=== PATIENT | female | born 1965 | race Caucasian/White ===

== ENCOUNTER 2016-08-13 08:49 | Outpatient (CLI) | payer OTHER | END 2016-08-13 23:59 | disposition home or self-care (01) | LOC: D.MAMMO 08:49 | DX: Z12.31 Encounter for screening mammogram for malignant neoplasm of breast (principal) ==

== ENCOUNTER 2017-03-06 09:52 | Emergency (ER) | payer MEDICAID | END 2017-03-06 11:03 | disposition home or self-care (01) | LOC: D.ER 09:52 | DX: I10 Essential (primary) hypertension (principal); G43.909 Migraine, unspecified, not intractable, without status migrainosus; F17.200 Nicotine dependence, unspecified, uncomplicated ==

== ENCOUNTER 2017-12-10 05:05 | Day surgery (SDC) | payer MEDICAID ==
[2017-12-09 14:27] LABS: HEMATOCRIT 43.7 % (36.0-48.0); HEMOGLOBIN 14.7 g/dL (12-16); MCH 30.3 pg (26.0-34.0); MCHC 33.6 g/dL (31.0-37.0); MCV 90.1 fL (80.0-100.0); MEAN PLATELET VOLUME 10.8 fL (7.4-10.4); RBC 4.85 10x6/uL (4.00-5.40)
[2017-12-09 14:35] LABS: CALC OSMOLALITY 276 mosm/kg (275-300); CARBON DIOXIDE 30.3 mmol/L (21.0-32.0); CHLORIDE - SERUM 103 mmol/L (98-107); CREATININE - SERUM 0.7 mg/dL (0.6-1.3); GLUCOSE 91 mg/dL (74-106); POTASSIUM - SERUM 3.8 mmol/L (3.5-5.1); SODIUM 140 mmol/L (136-145); UREA NITROGEN 7 mg/dL (7-18); eGFR NON AFRICAN AMERICAN > 90 mL/min (90-120)
[~2017-12-10] VITALS: Ht 157.5 cm; Wt 127.0 kg
--- NOTE | ~2017-12-10 | OP ---
PATIENT NAME: HELLEN ADEN MEDICAL RECORD: [id number] :69 LOCATION:D.OPS ADMISSION DATE: SURGEON: LIV LUDWIG DPM DATE OF OPERATION: 12/10/2017 PREOPERATIVE DIAGNOSES: 1. Retrocalcaneal spur, right foot. 2. Achilles tendon disruption, right foot. POSTOPERATIVE DIAGNOSES: 1. Retrocalcaneal spur, right foot. 2. Achilles tendon disruption, right foot. PROCEDURES: 1. Gastroc recession, right leg. 2. Right calcaneal spur removal. 3. Right Achilles tendon repair. ANESTHESIA: Preoperative popliteal block per the anesthesia department as well as intraoperative general anesthesia. HEMOSTASIS: Right thigh tourniquet at 350 mmHg. PREOPERATIVE DETAILS: The patient was taken to the OR and following induction of general anesthesia, the patient was placed on the operating table in a prone position. The right extremity was then prepped and draped in usual aseptic technique, followed by exsanguination and inflation of tourniquet. PROCEDURE #1: Gastroc recession, right leg: A 15-blade was used to create a 4-5 cm linear incision over the posterior aspect of the right gastroc aponeurosis. The incision was deepened down through subcutaneous tissue bluntly being sure to avoid all vital structures. Dissection was carried to the peritenon, which a linear incision was made longitudinally in the peritenon. At this time, it was freed from the aponeurosis with the foot held in dorsiflexion. A cut was made through the aponeurosis in a V fashion from medial to lateral allowing adequate dorsiflexion of the ankle joint. The wound was flushed and the skin was closed with skin chacorta. PROCEDURE #2: Retrocalcaneal spur removal, right foot: A 15 blade was used to create a 4-5 cm linear incision over the posterior aspect of the right Achilles tendon at its insertion. The incision was deepened down through subcutaneous tissue being sure to avoid all vital structures. Dissection was carried down to the posterior aspect of the calcaneus. The soft tissue was freed from the posterior aspect of the calcaneus as well as incision was made in the peritenon freeing it from the Achilles tendon. At this time, there was noted to be significant enlargement of the posterior calcaneus as well as intratendinous calcifications. A 15-blade was used to dissect the Achilles tendon off the insertion of the calcaneus. The Achilles tendon was then reflected exposing the posterior aspect of the calcaneus. There was noted to be significant spurring. A sagittal saw was used to resect the spurring leaving a good smooth surface. A 15-blade was used to then dissect the retrocalcaneal spurring and the intratendinous calcifications from the Achilles tendon itself. PROCEDURE #3: Repair of the Achilles tendon, right foot: Utilizing suture bridge technique with 4 anchors, the Achilles tendon was repaired back to the OPERATIVE REPORT [id number] HELLEN ADEN TOMA calcaneus in a very rigid fashion. Following the repair, there was noted to be excellent repair along the dorsiflexion of the ankle joint. The wound was flushed. The peritenon was then repaired with 2-0 Vicryl, the subcutaneous tissue with 4-0 Rapide, and skin was closed with 4-0 Rapide in a subcuticular technique followed by Dermabond. Adaptic, 4 x 4, and Conform were used to dress the wound, followed by application of a modified Segura compression dressing. Tourniquet was deflated. POSTOPERATIVE DETAILS: The patient tolerated the procedure well and left the OR with vital signs stable and vascular status at preop levels. The patient was transferred to recovery per anesthesia in stable condition. TRANSINT:[id number] Voice Confirmation ID: [id number] DOCUMENT ID: [id number] LIV LUDWIG DPM at 0922 CC: [id number] DICTATION DATE: 12/10/17819 ELECTRICAL CAD TECHNICIAN: 12/10/17 0836 [facility] [address] [place] [address]
[~2017-12-10 05:05] MED LIST: ATIVAN1 MG PO; BUTALB-APAP-CA1 EACH; CELEXA20 MG PO; K-TAB10 MEQ PO; PAZEO2.5 ML EACH EYE; PRINZIDE 20/12.1 TA1 PO; VENTOLIN HFA18 GM INH
[2017-12-10 06:08] VITALS: BP 112/75; Ht 157.5 cm; Wt 127.0 kg
== END 2017-12-10 10:10 | disposition home or self-care (01) ==
LOC: D.OPS 05:05 → D.PAN 07:00 → D.OPS 10:10
PROVIDERS: Anesthesiology
DX: M77.31 Calcaneal spur, right foot (principal); S86.011A Strain of right Achilles tendon, initial encounter; X58.XXXA Exposure to other specified factors, initial encounter; Z01.812 Encounter for preprocedural laboratory examination

== ENCOUNTER → 2018-09-11 10:14 | Outpatient (CLI) | payer MEDICAID ==
[2017-12-10 06:08] VITALS: BMI 51.3
== END | disposition home or self-care (01) ==
LOC: D.MRI 10:14
PROVIDERS: ATTEND Clinical Nurse Specialist Family Health
DX: M25.561 Pain in right knee (principal)

== ENCOUNTER 2018-10-12 11:05 | Day surgery (SDC) | payer MEDICAID ==
[~2018-10-12] VITALS: Ht 157.5 cm; Wt 122.7 kg
[2018-10-12 11:26] LABS: HEMATOCRIT 43.9 % (36.0-48.0); HEMOGLOBIN 15.1 g/dL (12-16); MCH 30.1 pg (26.0-34.0); MCHC 34.4 g/dL (31.0-37.0); MCV 87.5 fL (80.0-100.0); MEAN PLATELET VOLUME 10.2 fL (7.4-10.4); RBC 5.02 10x6/uL (4.00-5.40); RDW 14.1 % (11.5-14.5); WBC 6.3 10x3/uL (4.8-10.8)
[2018-10-12 11:46] LABS: CALC OSMOLALITY 273 mosm/kg (275-300); CALCIUM 8.7 mg/dL (8.5-10.1); CARBON DIOXIDE 27.8 mmol/L (21.0-32.0); CHLORIDE - SERUM 103 mmol/L (98-107); CREATININE - SERUM 0.8 mg/dL (0.6-1.3); POTASSIUM - SERUM 3.9 mmol/L (3.5-5.1); SODIUM 137 mmol/L (136-145); UREA NITROGEN 8 mg/dL (7-18); eGFR NON AFRICAN AMERICAN 80 mL/min (90-120)
[2018-10-12 11:47] LABS: GLUCOSE 141 mg/dL (74-106)
[2018-10-12 12:11] VITALS: BP 105/69; Ht 157.5 cm; Wt 122.7 kg
--- NOTE | 2018-10-12 15:25 | NUR ---
1443 IV DC'D. CATHETER INTACT. NO BLEEDING AT SITE. BANDAID APPLIED.
--- NOTE | 2018-10-14 17:26 | OP ---
PATIENT NAME: HELLEN ADEN MEDICAL RECORD: [id number] :69 [facility] DATE: SURGEON: PAUL RASMUSSEN DO DATE OF OPERATION: 10/12/2018 PROCEDURE: Colonoscopy with polypectomy and biopsy. INDICATIONS FOR PROCEDURE: Diarrhea. SCOPE: Olympus video pediatric colonoscope. MEDICATIONS: Propofol 450 mg IV per anesthesia. WITHDRAWAL TIME: 17 minutes. ESTIMATED BLOOD LOSS: Minimal. COMPLICATIONS: None. FINDINGS AND DESCRIPTION OF PROCEDURE: Informed consent was given. The patient was made comfortable with the above medication. After reaching an adequate level of sedation by slow IV push, the patient was placed on her left side. A digital rectal examination was performed and it was normal. The endoscope was then advanced under direct visualization through the rectum to the terminal ileum and cecum. The endoscope was slowly withdrawn and mucosa was carefully examined. The prep quality was fair. The terminal ileum appeared normal. In the ascending colon, there were two separate polyps, which were benign-appearing and sessile. They ranged in size from 3 to 5 mm in diameter. They were removed using a hot snare in one piece and completely retrieved. In the transverse colon, there were two separate polyps, which were benign-appearing and sessile. They ranged in size from 2 to 4 mm in diameter. They were removed using hot forceps. In the descending colon, there was a single polyp, which was benign appearing and sessile. It measured approximately 4 mm in diameter. It was removed using a hot forceps in one piece and completely retrieved. In the sigmoid colon, there were 3 separate polyps, which were benign-appearing and sessile. They ranged in size from 3 to 6 mm in diameter. They were all removed using hot snare in one piece and completely retrieved. There was evidence of mild diverticulosis involving the sigmoid colon. Retroflexion was performed in the rectum with a normal-appearing rectal wall. The endoscope was withdrawn from the patient. The patient tolerated the procedure well and there were no complications. IMPRESSION: 1. Eight polyps as described above, removed using a combination of a hot snare and hot forceps. 2. Mild diverticulosis of the sigmoid colon. PLAN AND RECOMMENDATIONS: 1. Discharge home when recovery parameters are met. 2. Follow up biopsy specimen results. 3. High fiber diet. 4. Continue current medications. 5. Recommend continuing or restarting Viberzi for what appears to be irritable bowel syndrome that is diarrhea predominant. 6. We will provide a prescription for dicyclomine 20 mg 3 times daily as needed OPERATIVE REPORT [id number] HELLEN ADEN for loose stools or abdominal pain and cramping. 7. Follow up in GI clinic in 3-4 weeks. 8. Recall colonoscopy in 2 to 3 years based on number and types of polyps removed on today's examination. TRANSINT:[id number] Voice Confirmation ID: [id number] DOCUMENT ID: [id number] PAUL RASMUSSEN DO at 1726 CC: [id number] DICTATION DATE: 10/12/18 1348 PRODUCTION FOREMAN: 10/12/18 1412 [facility] 10/12/18 [facility] [address] [place] [address]
== END 2018-10-12 14:50 | disposition home or self-care (01) ==
LOC: D.OPS 11:05
PROVIDERS: Anesthesiology; ATTEND Internal Medicine Gastroenterology
DX: D12.2 Benign neoplasm of ascending colon (principal); D12.3 Benign neoplasm of transverse colon; K63.5 Polyp of colon; K57.30 Diverticulosis of large intestine without perforation or abscess without bleeding; Z01.812 Encounter for preprocedural laboratory examination

== ENCOUNTER 2018-10-30 08:00 | Outpatient (CLI) | payer MEDICAID ==
[2018-10-12 12:11] VITALS: BMI 49.5
== END 2018-10-30 10:00 | disposition home or self-care (01) ==
LOC: D.MAMMO 08:00
PROVIDERS: ATTEND Nurse Practitioner Family
DX: Z12.31 Encounter for screening mammogram for malignant neoplasm of breast (principal)

== ENCOUNTER 2019-03-16 10:24 | Inpatient (IN) | payer MEDICAID ==
[~2019-03-16] VITALS: Ht 157.5 cm; Wt 124.7 kg
[2019-03-16 11:06] LABS: APPEARANCE HAZY (CLEAR); BACTERIA MODERATE /hpf (NEGATIVE); BILIRUBIN NEGATIVE (NEGATIVE); COLOR DK YELLOW (YELLOW); EPITHELIAL CELLS 0-5 /hpf (0-5); GLUCOSE NEGATIVE (NEGATIVE); KETONE NEGATIVE (NEGATIVE); MUCUS <1+ /lpf (NONE SEEN); NITRITE NEGATIVE (NEGATIVE); PROTEIN NEGATIVE (NEGATIVE); SPECIFIC GRAVITY 1.015 (1.005-1.020); WHITE CELLS - URINE RARE /hpf (NEGATIVE)
[2019-03-16 11:10] LABS: BASOPHILS 0.1 % (0-2); EOSINOPHILS 0.1 % (0-7); HEMATOCRIT 43.9 % (36.0-48.0); IMMATURE GRANULOCYTES 0.5 % (0-5); LYMPHOCYTES 10.5 % (15-50); MCH 30.7 pg (26.0-34.0); MCHC 34.2 g/dL (31.0-37.0); MCV 89.8 fL (80.0-100.0); MEAN PLATELET VOLUME 10.6 fL (7.4-10.4); MONOCYTES 7.5 % (2-11); NEUTROPHILS 81.3 % (40-80); PLATELET COUNT 178 10x3/uL (130-400); RBC 4.89 10x6/uL (4.00-5.40); RDW 13.5 % (11.5-14.5); WBC 16.7 10x3/uL (4.8-10.8)
[2019-03-16 11:28] LABS: CALC OSMOLALITY 273 mosm/kg (275-300); CALCIUM 8.7 mg/dL (8.5-10.1); CARBON DIOXIDE 27.6 mmol/L (21.0-32.0); CHLORIDE - SERUM 98 mmol/L (98-107); CREATININE - SERUM 0.8 mg/dL (0.6-1.3); GLUCOSE 171 mg/dL (74-106); POTASSIUM - SERUM 3.5 mmol/L (3.5-5.1); SODIUM 136 mmol/L (136-145); UREA NITROGEN 7 mg/dL (7-18); eGFR NON AFRICAN AMERICAN 80 mL/min (90-120)
[2019-03-16 11:31] VITALS: BP 118/69
[2019-03-16 11:32] LABS: ALBUMIN 3.1 g/dL (3.4-5.0); ALKALINE PHOSPHATASE 63 U/L (46-116); ALT (SGPT) 53 U/L (10-68); AMYLASE - SERUM 28 U/L (25-115); BILIRUBIN - TOTAL 0.73 mg/dL (0.2-1.3); LIPASE 69 U/L (73-393); PROTEIN - SERUM 7.3 g/dL (6.4-8.2); TROPONIN-I < 0.017 ng/mL (0.000-0.060)
[2019-03-16 12:21] VITALS: BP 108/68
--- NOTE | 2019-03-16 12:22 | NUR ---
RESTING "PAIN MUCH BETTER"
[2019-03-16 13:42] VITALS: BP 110/82
--- NOTE | 2019-03-16 15:00 | NUR ---
REPORT CALLED TO JEREMIAH ALMANZAR
[2019-03-16 15:07] VITALS: BP 108/68
--- NOTE | 2019-03-16 16:32 | NUR ---
RECEIVED PT FROM JEREMIAH MERCADO IN ER, PT IS UP ADLIB, A&O X4, VERY DISAPPOINTED TO BE HERE DUE TO THE HOLIDAYS, STARTED PT BINDERY MACHINE OPERATOR, PT IS LYING ON RT SIDE RESTING, NO SIGNS OF DISTRESS, CL IN REACH CONTINUE WITH PLAN OF CARE
[2019-03-16 17:00] VITALS: BP 97/57; BMI 50.4
--- NOTE | 2019-03-16 20:00 | NUR ---
A/O WITH NO SIGNS OF DISTRESS. IV TO THE LT FOREARM WITH NO REDNESS OR SWELLING NOTED. ENCOURAGED COOL FLUIDS, ICE PACKS, AND GAVE PRN MEDS FOR TEMP. DENIES NO FURTHER NEEDS AT THIS TIME. CONTINUE PLAN OF CARE.
[2019-03-16 21:10] VITALS: BP 109/62
[2019-03-17 01:58] VITALS: BP 98/57
[2019-03-17 06:09] LABS: BASOPHILS 0.1 % (0-2); EOSINOPHILS 0.3 % (0-7); HEMATOCRIT 41.6 % (36.0-48.0); HEMOGLOBIN 13.5 g/dL (12-16); IMMATURE GRANULOCYTES 0.3 % (0-5); LYMPHOCYTES 12.1 % (15-50); MCH 29.6 pg (26.0-34.0); MCHC 32.5 g/dL (31.0-37.0); MCV 91.2 fL (80.0-100.0); MONOCYTES 7.8 % (2-11); NEUTROPHILS 79.4 % (40-80); PLATELET COUNT 161 10x3/uL (130-400); RBC 4.56 10x6/uL (4.00-5.40); RDW 13.6 % (11.5-14.5); WBC 14.9 10x3/uL (4.8-10.8)
[2019-03-17 06:34] LABS: ALBUMIN 2.5 g/dL (3.4-5.0); ALKALINE PHOSPHATASE 61 U/L (46-116); BILIRUBIN - TOTAL 0.47 mg/dL (0.2-1.3); CALCIUM 8.1 mg/dL (8.5-10.1); CARBON DIOXIDE 25.2 mmol/L (21.0-32.0); CHLORIDE - SERUM 104 mmol/L (98-107); CREATININE - SERUM 0.8 mg/dL (0.6-1.3); MAGNESIUM - SERUM 1.6 mg/dL (1.8-2.4); POTASSIUM - SERUM 3.7 mmol/L (3.5-5.1); SODIUM 138 mmol/L (136-145); UREA NITROGEN 6 mg/dL (7-18); eGFR NON AFRICAN AMERICAN 80 mL/min (90-120)
[2019-03-17 06:35] LABS: ALT (SGPT) 35 U/L (10-68); CALC OSMOLALITY 274 mosm/kg (275-300); GLUCOSE 122 mg/dL (74-106)
--- NOTE | 2019-03-17 07:45 | NUR ---
PT SITTING UP IN BED C/O HIP PAIN TODAY AND "JUST FEELING STIFF" PT HAS BAKERY PASTRY INTERNSHIP AND STATES BAKERY PASTRY INTERNSHIP HELPS WITH HER BELLY PAIN BUT NOT MUCH FOR HER HIPS. PT REQUESTED DIAMOND AND EGGS FOR BREAKFAST ADVISED ER STILL ON CLEAR LIQUID DIET. NO SIGNS OF DISTRESS, ABD SOFT TO TOUCH STATES A LITTLE TENDER BUT BETTER, CL IN REACH CONTINUE WITH PLAN OF CARE
[2019-03-17 08:09] VITALS: BP 111/70
--- NOTE | 2019-03-17 11:05 | NUR ---
PT OUT OF SHOWER BACK IN BED STATES PAIN IS BACK TO WHERE IT WAS YESTERDAY WHEN SHE CAME IN. 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 PT TEMP IS 101, ADMINISTERED PRN TYLENOL. CONTINUE WITH PLAN OF CARE
--- NOTE | 2019-03-17 14:06 | NUR ---
PT IS UPSET DUE TO NEWS OF SURGERY 03/18/19, PT IS EMOTIONAL AND CRYING DUE TO HOLIDAYS AND NOT BEING ABLE TO SEE GRANDCHILDREN, PT ASKED TO STEP OUTSIDE TO GET FRESH AIR, IV IN LEFT FA INFILTRATED, WILL RESITE PT WHEN SHE RETURNS
--- NOTE | 2019-03-17 15:19 | NUR ---
IV RESITED TO RIGHT WRIST. 2 ATTEMPTS. IV FLUIDS RESTARTED. CL IN REACH. BED IN LOW POSITION.
[2019-03-17 15:49] VITALS: BP 97/64
--- NOTE | 2019-03-17 20:00 | NUR ---
ALERT RESTING IN BED. DENIES PAIN OR NEEDS AT THIS TIME, SEE SHIFT ASSESSMENT, CALL LIGHT IN REACH
[2019-03-18] VITALS: BP 116/76
[2019-03-18 05:18] LABS: BASOPHILS 0.2 % (0-2); EOSINOPHILS 0.2 % (0-7); HEMATOCRIT 38.1 % (36.0-48.0); HEMOGLOBIN 12.3 g/dL (12-16); IMMATURE GRANULOCYTES 0.3 % (0-5); LYMPHOCYTES 5.8 % (15-50); MCH 29.5 pg (26.0-34.0); MCHC 32.3 g/dL (31.0-37.0); MCV 91.4 fL (80.0-100.0); MEAN PLATELET VOLUME 10.9 fL (7.4-10.4); MONOCYTES 6.7 % (2-11); NEUTROPHILS 86.8 % (40-80); PLATELET COUNT 159 10x3/uL (130-400); RBC 4.17 10x6/uL (4.00-5.40); RDW 13.6 % (11.5-14.5); WBC 11.6 10x3/uL (4.8-10.8)
[2019-03-18 05:32] LABS: CALC OSMOLALITY 268 mosm/kg (275-300); CALCIUM 8.1 mg/dL (8.5-10.1); CARBON DIOXIDE 24.6 mmol/L (21.0-32.0); CHLORIDE - SERUM 100 mmol/L (98-107); CREATININE - SERUM 0.7 mg/dL (0.6-1.3); GLUCOSE 146 mg/dL (74-106); MAGNESIUM - SERUM 1.8 mg/dL (1.8-2.4); POTASSIUM - SERUM 3.4 mmol/L (3.5-5.1); SODIUM 134 mmol/L (136-145); UREA NITROGEN 6 mg/dL (7-18); eGFR NON AFRICAN AMERICAN > 90 mL/min (90-120)
--- NOTE | 2019-03-18 06:55 | NUR ---
ALERT AND ORIENTED, RESTING IN BED. NO C/O PAIN. NO S/S OF ACUTE DISTRESS NOTED. DENIES ANY NEEDS AT THIS TIME. CALL LIGHT IN REACH. WILL CONTINUE TO MONITOR.
[2019-03-18 08:43] VITALS: BP 107/68
[2019-03-18 09:45] VITALS: Ht 157.5 cm; Wt 124.7 kg
[2019-03-18 11:03] LABS: INR 1.11 (0.85-1.17); PROTIME 13.8 SECONDS (11.6-15.0)
--- NOTE | 2019-03-18 11:17 | NUR ---
I have reviewed this patient and I concur with the Shift Assessment completed by the Licensed Practical Nurse today this shift.
[2019-03-18 12:26] VITALS: BP 96/63
[2019-03-18 16:40] VITALS: BP 120/79
--- NOTE | 2019-03-18 18:52 | NUR ---
ALERT AND ORIENTED, RESTING IN BED. DENIES ANY NEEDS AT THIS TIME. CALL LIGHT IN REACH. WILL CONTINUE TO MONITOR.
[2019-03-18 20:00] VITALS: BP 89/53
[2019-03-19] VITALS: BP 104/65
--- NOTE | 2019-03-19 00:35 | NUR ---
I have reviewed this patient and I concur with the Shift Assessment completed by the Licensed Practical Nurse today this shift.
[2019-03-19 04:00] VITALS: BP 113/60
--- NOTE | 2019-03-19 05:13 | NUR ---
REC'D CHGE OF SHIFT WALKING ROUNDS ASLEEP ONCE AWAKE STATES SOMEBODY IS GOING TO TELL ME WHAYTS GOING ON.UPSET OF BEING NPO EXPLAINDED WITH N/V ABDOMINAL ISSUES THAT IS USUALLY STANDARD PLAN OF CARE STATES DR NEVER CAME BACK (DR AGUSTIN) STATES HE ONLY CAME TO SEE ME ONE TIME YESTERDAY ATTEMPTED TO EXPLAIN UNLESS THERE IS A PROBLEM HE USUALL ONLY COME DAILY.STATES IF I CAN'T FIND OUT ANYTHING IN AM I'M LEAVING WILL CONTINUE TO MONITOR FOR ANY CHGES AND FOLLOW CURRENT PLAN OF CARE.
[2019-03-19 06:29] LABS: BASOPHILS 0.2 % (0-2); EOSINOPHILS 0.4 % (0-7); HEMATOCRIT 36.1 % (36.0-48.0); HEMOGLOBIN 11.7 g/dL (12-16); IMMATURE GRANULOCYTES 0.3 % (0-5); LYMPHOCYTES 11.9 % (15-50); MCH 29.6 pg (26.0-34.0); MCHC 32.4 g/dL (31.0-37.0); MCV 91.4 fL (80.0-100.0); MEAN PLATELET VOLUME 10.4 fL (7.4-10.4); MONOCYTES 10.2 % (2-11); PLATELET COUNT 177 10x3/uL (130-400); RBC 3.95 10x6/uL (4.00-5.40); RDW 13.8 % (11.5-14.5); WBC 10.2 10x3/uL (4.8-10.8)
[2019-03-19 06:40] LABS: CALC OSMOLALITY 269 mosm/kg (275-300); CALCIUM 8.1 mg/dL (8.5-10.1); CARBON DIOXIDE 26.2 mmol/L (21.0-32.0); CHLORIDE - SERUM 102 mmol/L (98-107); CREATININE - SERUM 0.7 mg/dL (0.6-1.3); MAGNESIUM - SERUM 1.9 mg/dL (1.8-2.4); POTASSIUM - SERUM 3.6 mmol/L (3.5-5.1); SODIUM 136 mmol/L (136-145); UREA NITROGEN 7 mg/dL (7-18); eGFR NON AFRICAN AMERICAN > 90 mL/min (90-120)
[2019-03-19 06:41] LABS: GLUCOSE 91 mg/dL (74-106)
--- NOTE | 2019-03-19 07:33 | NUR ---
PT IS RESTING IN BED WITH EYES OPEN. RESPIRATIONS ARE EVEN AND UNLABORED. PT IS AOO X 4. PT DENIES PRESENCE OF N/V AT THIS TIME. PIV TO RIGHT WRIST IS INFUSING WITHOUT DIFFICULTY. BS ACTIVE X 4. PT DENIES PRESENCEOF TENDERNESS UPON PALPATION TO ABDOMEN. BED IS IN THE LOWEST POSITION. CALL LIGHT AND BEDSIDE TABLE ARE WITHIN REACH. SIDE RAILS X 2. PT DENIES FURTHER NEEDS. WILL CONT TO MONITOR.
--- NOTE | 2019-03-19 08:11 | MORECARE ---
CASE MANAGEMENT DISCHARGE SUMMARY PATIENT: HELLEN ADEN UNIT: [id number] ADM DATE: 03/16/19 AGE: 53 : [birth year] SEX: F ROOM/BED: D.4834 AUTHOR: ANDRYDOC PHYSICIAN: REFERRING PHYSICIAN: PORSHA TESFAYE MD DATE OF SERVICE: 03/19/19 Discharge Plan Patient Name: HELLEN ADEN Facility: [facility]:[place] : 1965 Planned Disposition: Home or Self Care Anticipated Discharge Date: Discharge Date: Expected LOS: Initial Reviewer: [email or web address] Initial Review Date: 03/16/2019 Generated: 03/19/19 9:11 am Comments DCP- Discharge Planning Updated by [email or web address]: Shayy Dan on 03/19/19 7:[address] Patient Name: HELLEN ADEN Admission Status: ER Accout number: [id number] Admission Date: 03-16-2019 : 1965 Admission Diagnosis: Attending: PORSHA TESFAYE Current LOS: 3 Anticipated DC Date: Planned Disposition: Home or Self Care Primary Insurance: MEDICAID [place] Discharge Planning Comments: CM met with patient to complete initial dc planning assessment. CM educated patient on the CM role and verbal consent given by patient to complete assessment. Patient lives at home with her disabled 30 year old and she has guardianship of her 4 grandkids that she is raising. At discharge patient plans to return home and feels this is a safe discharge. 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 CM discussed availability of home health, rehab services, and medical equipment. She has a CPAP machine from [facility], but it causes an eye infection. She stated she get a new mask every month but her tubing has not been changed. Will try to get new tubing for her. Patient denied known discharge needs at this time. CM will continue to follow and will assist as needed with dc plans/needs. Dialysis Registered Nurse: Shayy Dan DCPIA - Discharge Planning Initial Assessment Updated by [email or web address]: Shayy Dan on 03/19/19 8:06 am * Is the patient Alert and Oriented? Yes * How many steps to enter\exit or inside your home? * PCP MARIEL * Pharmacy [facility] [address] * Preadmission Environment Home with Family * ADLs Independent * Equipment CPAP * List name and contact numbers for known caregivers / representatives who currently or will assist patient after discharge: MOSHE [phone] * Verbal permission to speak to the caregivers and representatives has been obtained from the patient. N/A * Community resources currently utilized None * Additional services required to return to the preadmission environment? No * Can the patient safely return to the preadmission environment? Yes * Has this patient been hospitalized within the prior 30 days at any hospital? No Coverage Notice Reviewer: [email or web address] Yisel Dan Notice Issued Date-Time: 03/19/2019 7:50 Notice Type: Patient Choice Letter Notice Delivered To: Patient Relationship to Patient: Parts Identifier Name: Delivery Method: HAND - Hand Delivered Ciera Days: Prior Verbal Notification: Recipient Understood Notice: Yes Recipient Signature: Yes Med Rec Note Co-signed by Attending: Coverage Notice Comment: [facility] for cpap Patient Name: HELLEN ADEN Page [phone] at 0811 All edits/amendments must be made on the electronic document DICTATION DATE: 03/19/19810 ENROLLER: SHAUN 03/19/19810 RPT#: [id number] DC DATE: STATUS: ADM IN [facility] [address] [place] [address] END OF REPORT
[2019-03-19 09:03] VITALS: BP 141/83
--- NOTE | 2019-03-19 09:45 | NUR ---
PIV TO RIGHT WRIST IS RED AND TENDER. PIV REMOVED WITH CATHETER TIP INTACT. DRESSING APPLIED. PT REQUESTS TO SHOWER PRIOR TO PIV RESITE ATTEMPTS. PT TO NOTIFY NURSE WHEN SHOWER IS COMPLETE.
--- NOTE | 2019-03-19 11:27 | NUR ---
PT AMBULATES OFF FLOOR FOR "FRESH AIR". PT LEAVES THIS NURSE HER PERSONAL CELL PHONE NUMBER AND REQUESTS A PHONE CALL IF PHYSICIANS COME TO ROOM. PT DENIES FURTHER NEEDS.
[2019-03-19 12:10] VITALS: BP 127/76
--- NOTE | 2019-03-19 13:10 | NUR ---
VASCULAR ACCESS NURSE NOTIFIED OF CONSULT.
[2019-03-19 16:15] VITALS: BP 150/83
[2019-03-19 20:00] VITALS: BP 136/77
--- NOTE | 2019-03-19 22:54 | NUR ---
REC'D. CHGE OF SHIFT WALKING ROUNDS SITTING ON SIDE OF BED.CONTINUES TO COMPLAIN OF NEW IV SITES BEING POSITINAL AGAIN BEEPS SHOWING OCCULDED. ENCOURAGED TO TRY AND KEEP LEFT HAND ON PILLOW TO HELP KEEP IV FROM BEEPING.DR AGUSTIN HERE TALKED TO PT AT [facility] REGUARDING XRAY RESULTS AND NEXT PLAN OF CARE AND TREATMENT. WILL CONTINUE TO MONITOR FOR ANY CHGES AND FOLLOW CURRENT PLAN OF CARE.
[2019-03-20] VITALS: BP 104/45
--- NOTE | 2019-03-20 03:00 | NUR ---
I have reviewed this patient and I concur with the Shift Assessment completed by the Licensed Practical Nurse today this shift.
[2019-03-20 04:00] VITALS: BP 125/80
[2019-03-20 06:27] LABS: BASOPHILS 0.2 % (0-2); EOSINOPHILS 0.4 % (0-7); HEMATOCRIT 36.1 % (36.0-48.0); HEMOGLOBIN 11.9 g/dL (12-16); IMMATURE GRANULOCYTES 0.5 % (0-5); LYMPHOCYTES 14.2 % (15-50); MCH 29.6 pg (26.0-34.0); MCV 89.8 fL (80.0-100.0); MEAN PLATELET VOLUME 10.2 fL (7.4-10.4); MONOCYTES 9.9 % (2-11); NEUTROPHILS 74.8 % (40-80); PLATELET COUNT 172 10x3/uL (130-400); RBC 4.02 10x6/uL (4.00-5.40); RDW 13.7 % (11.5-14.5); WBC 9.9 10x3/uL (4.8-10.8)
[2019-03-20 07:17] LABS: CALC OSMOLALITY 269 mosm/kg (275-300); CALCIUM 7.9 mg/dL (8.5-10.1); CHLORIDE - SERUM 101 mmol/L (98-107); CREATININE - SERUM 0.6 mg/dL (0.6-1.3); GLUCOSE 114 mg/dL (74-106); MAGNESIUM - SERUM 1.6 mg/dL (1.8-2.4); POTASSIUM - SERUM 3.4 mmol/L (3.5-5.1); SODIUM 136 mmol/L (136-145); UREA NITROGEN 5 mg/dL (7-18); eGFR NON AFRICAN AMERICAN > 90 mL/min (90-120)
[2019-03-20 09:01] VITALS: BP 105/56
--- NOTE | 2019-03-20 10:24 | NUR ---
PT RESTING IN BED WITH EYES CLOSED, EASILY AROUSED TO SPEECH, ALERT AND ORIENTED. IV LOCATED TO LEFT FOREARM RUNNING NS @ 125, PROCAL @ 50, MORPHINE FLUID PUMP OPERATOR. NO S/S OF DISTRESS AT THIS TIME, DENIES NEEDS, WILL CONT TO MONITOR.
[2019-03-20 13:02] VITALS: BP 128/80
[2019-03-20 16:49] VITALS: BP 120/60
--- NOTE | 2019-03-20 19:29 | NUR ---
PATIENT RESTING IN BED WITH NO S/S OF DISTRESS. CONNECTED PATIENT TO IV THAT WAS DELAYED FOR PATIENT TO AMBULATE AROUND UNIT. PATIENT DENIES NEEDS AT THIS TIME. BED IN LOWEST POSITION AND CALL LIGHT WITHIN REACH. ENCOURAGED THE PATIENT TO CALL IF SHE HAS NEEDS. WILL CONTINUE TO MONITOR.
[2019-03-20 20:00] VITALS: BP 147/80
[2019-03-21] VITALS: BP 114/68
--- NOTE | 2019-03-21 02:12 | NUR ---
NOTIFIED BY THE WIND TURBINE CONTROLS ENGINEER THAT THE PATIENT WAS SHORT OF BREATH AND THE PATIENT'S O2 WAS 77%. OG, , AND CANDELARIA FORDE AT BEDSIDE. PLACED PATIENT ON O2. PATIENT STATES SHE HAS A HISTORY OF SLEEP APNEA AND WEARS A CPAP AT HOME. PATIENT STATED THAT WHEN SHE WOKE UP SHE FELT SHORT OF BREATH. PATIENT IS CURRENTLY ON 7L HIGH FLOW AND O2 SAT IS AT 92%. PATIENT STATED SHE IS "FEELING BETTER". ENCOURAGED THE PATIENT TO CALL IF SHE BEGINS TO FEEL SHORT OF BREATH AGAIN. EXPLAINED TO THE PATIENT THAT I AM LEAVING HER DOOR OPEN SO I CAN SEE HER FROM MY COMPUTER. WILL CONTINUE TO MONITOR.
--- NOTE | 2019-03-21 03:09 | NUR ---
PATIENT O2 98% ON 7L. DECREASED O2 TO 5L, PATIENT'S O2 95%. WILL CONTINUE TO MONITOR.
[2019-03-21 04:00] VITALS: BP 121/78
[2019-03-21 06:19] LABS: BASOPHILS 0.6 % (0-2); EOSINOPHILS 0.1 % (0-7); HEMATOCRIT 37.3 % (36.0-48.0); HEMOGLOBIN 12.2 g/dL (12-16); IMMATURE GRANULOCYTES 0.8 % (0-5); LYMPHOCYTES 13.4 % (15-50); MCH 29.4 pg (26.0-34.0); MCHC 32.7 g/dL (31.0-37.0); MCV 89.9 fL (80.0-100.0); MEAN PLATELET VOLUME 10.4 fL (7.4-10.4); MONOCYTES 9.2 % (2-11); NEUTROPHILS 75.9 % (40-80); PLATELET COUNT 201 10x3/uL (130-400); RBC 4.15 10x6/uL (4.00-5.40); RDW 13.8 % (11.5-14.5); WBC 8.8 10x3/uL (4.8-10.8)
[2019-03-21 06:39] LABS: CALC OSMOLALITY 270 mosm/kg (275-300); CALCIUM 7.9 mg/dL (8.5-10.1); CARBON DIOXIDE 24.9 mmol/L (21.0-32.0); CHLORIDE - SERUM 103 mmol/L (98-107); CREATININE - SERUM 0.5 mg/dL (0.6-1.3); GLUCOSE 132 mg/dL (74-106); MAGNESIUM - SERUM 1.9 mg/dL (1.8-2.4); POTASSIUM - SERUM 3.9 mmol/L (3.5-5.1); SODIUM 136 mmol/L (136-145); UREA NITROGEN 5 mg/dL (7-18); eGFR NON AFRICAN AMERICAN > 90 mL/min (90-120)
[2019-03-21 08:42] VITALS: BP 145/81
[2019-03-21 13:44] VITALS: BP 150/81
--- NOTE | 2019-03-21 17:38 | NUR ---
ATIVAN AND BUMEX PO GIVEN. CONTRERAS INSERTED PER ORDER. PATIENT ANXIOUS AND WANTING TO SIT UP IN CHAIR. DRS AWARE OF NO IV ACCESS. PICC TO BE PLACED TOMORROW
[2019-03-21 17:48] VITALS: BP 119/69
[2019-03-21 19:30] VITALS: BP 108/60
--- NOTE | 2019-03-21 19:42 | NUR ---
PATIENT SITTING UP IN CHAIR WITH NO S/S OF DISTRESS. EMPTIED 23OO OUT OF PATIENT'S CONTRERAS AND CHANGED LINENS ON PATIENT'S CHAIR. PATIENT DENIES OTHER NEEDS AT THIS TIME. BED IN LOWEST POSITION AND CALL LIGHT WITHIN REACH. ENCOURAGED THE PATIENT TO CALL IF SHE HAS NEEDS. WILL CONTINUE TO MONITOR.
[2019-03-22 00:30] VITALS: BP 97/61
[2019-03-22 05:01] VITALS: BP 101/60
[2019-03-22 05:23] LABS: BASOPHILS 0.4 % (0-2); EOSINOPHILS 0 % (0-7); HEMATOCRIT 37.7 % (36.0-48.0); HEMOGLOBIN 12.4 g/dL (12-16); IMMATURE GRANULOCYTES 0.9 % (0-5); LYMPHOCYTES 15.6 % (15-50); MCH 29.4 pg (26.0-34.0); MCHC 32.9 g/dL (31.0-37.0); MCV 89.3 fL (80.0-100.0); MEAN PLATELET VOLUME 10.1 fL (7.4-10.4); MONOCYTES 12.3 % (2-11); NEUTROPHILS 70.8 % (40-80); PLATELET COUNT 235 10x3/uL (130-400); RBC 4.22 10x6/uL (4.00-5.40); RDW 13.7 % (11.5-14.5); WBC 7.7 10x3/uL (4.8-10.8)
[2019-03-22 06:23] LABS: ALBUMIN 2.3 g/dL (3.4-5.0); ALKALINE PHOSPHATASE 54 U/L (46-116); ALT (SGPT) 35 U/L (10-68); BILIRUBIN - TOTAL 0.32 mg/dL (0.2-1.3); CALC OSMOLALITY 277 mosm/kg (275-300); CALCIUM 8.2 mg/dL (8.5-10.1); CHLORIDE - SERUM 98 mmol/L (98-107); GLUCOSE 160 mg/dL (74-106); PROTEIN - SERUM 6.5 g/dL (6.4-8.2); SODIUM 139 mmol/L (136-145); UREA NITROGEN 4 mg/dL (7-18)
[2019-03-22 06:24] LABS: CARBON DIOXIDE 32.2 mmol/L (21.0-32.0); CREATININE - SERUM 0.7 mg/dL (0.6-1.3); eGFR NON AFRICAN AMERICAN > 90 mL/min (90-120)
--- NOTE | 2019-03-22 07:10 | NUR ---
PT RESTING IN BED, NO SIGNS OF DISTRESS. NO IV AT THIS TIME. ON 4L HIGH FLOW. HAS CONTRERAS NO KINKS PATENT. DENIES ANY FURTHER NEED AT THIS TIME. CALL LIGHT IN REACH. BED LOW POSITION. NO FAMILY AT BEDSIDE AT THIS TIME.
[2019-03-22 08:25] VITALS: BP 141/90
--- NOTE | 2019-03-22 10:29 | NUR ---
I have reviewed this patient and I concur with the Shift Assessment completed by the Licensed Practical Nurse today this shift.
[2019-03-22 13:07] VITALS: BP 97/65
--- NOTE | 2019-03-22 15:06 | NUR ---
Nutrition follow-up: Pt now feeling well today IV out; Midline place Pt has ProcalAmine ppn ordered @ 50 ml/hr. Has not been running due to IV out Diet advanced to full liquids +BM RDN following.
--- NOTE | 2019-03-22 15:46 | NUR ---
MET WITH PT AGAIN AND DISCUSSED NEW ORDERS OF IMODIUM, KUB, AND PULM CONSULT. SET UP PASSWORD WITH PT. FATHER AT BEDSIDE AND HAD PERMISSION TO VISIT WITH PT IN FRONT OF FATHER. PT STATED APPRECIATION FOR UPDATED INFORMATION.
[2019-03-22 16:40] VITALS: BP 127/82
--- NOTE | 2019-03-22 19:14 | NUR ---
PATIENT RESTING IN BED WITH MULTIPLE GUESTS AT BEDSIDE. PATIENT C/O PAIN WITH CONTRERAS. I EXPLAINED TO THE PATIENT AND ALL OF HER GUESTS THAT THE PICKLING SOLUTION MAKER HAD BEEN PAGED BY DAY SHIFT AND THAT I WOULD LET THEM KNOW THE PLAN SOON I HEAR FROM HIM. PATIENT AND FAMILY DENY OTHER NEEDS AT THIS TIME.
--- NOTE | 2019-03-22 19:40 | NUR ---
AIDA HARE IN REGARDS TO PATIENT WANTING CONTRERAS REMOVED
--- NOTE | 2019-03-22 19:45 | NUR ---
EXPLAINED TO THE PATIENT AND GUESTS THAT I HAD PAGED THE GAS TRUCK DRIVER AGAIN. I ALSO EXPLAINED TO THE PATIENT AND GUESTS THAT THE PATIENT IS BEING GIVEN IV LASIX FOR FLUIDS. I EXPLAINED TO THEM THAT ON MY SHIFT THE PREVIOUS NIGHT, I EMPTIED 5100ML OF URINE OUT OF HER CONTRERAS BAG. I SHOWED THEM A URINAL TO DESCRIBE WHAT 1000ML LOOKS LIKE. I EXPLAINED THAT WITH THE PATIENT PRODUCING THAT LARGE OF A VOLUME OF URINE THAT THE PATIENT WOULD BE UP AND DOWN TO THE RESTROOM MULTIPLE TIMES THROUGHOUT THE NIGHT. THE PATIENT WOULD NOT ONLY NOT REST AND WOULD EXHAUST THE PATIENT AND NEGATIVELY AFFECT HER RESP STATUS. PATIENT AND GUESTS VERBALIZED UNDERSTANDING.
[2019-03-22 20:30] VITALS: BP 111/84
--- NOTE | 2019-03-22 20:55 | NUR ---
ATTEMPTED TO ADJUST PATIENT'S CONTRERAS BECAUSE OF PATIENT OF DISCOMFORT. PATIENT STATED SHE DOES NOT KNOW IF IT HELPED YET. TOLD PATIENT I WILL COME BACK AND CHECK ON HER AND ENCOURAGED HER TO CALL IF SHE HAS NEEDS. GUEST AT BEDSIDE. WILL CONTINUE TO MONITOR.
--- NOTE | 2019-03-22 21:55 | NUR ---
REPLACED CONTRERAS CATH WITH A 16F.
--- NOTE | 2019-03-22 23:25 | NUR ---
PATIENT RESTING IN BED WITH EYES CLOSED AND NO S/S OF DISTRESS. GUEST RESTING IN CHAIR WITH EYES CLOSED. PATIENT ON CONTINUOUS PULSE OX, O2 95% ON 8L HIGH FLOW AT THIS TIME. BED IN LOWEST POSITION AND CALL LIGHT WITHIN REACH. WILL CONTINUE TO MONITOR.
--- NOTE | 2019-03-22 23:42 | NUR ---
PATIENT AND GUEST AT BEDSIDE REQUESTED PSYCH NURSE BE CALLED AGAIN FOR SOMETHING ELSE TO HELP WITH BLADDER SPASMS
--- NOTE | 2019-03-22 23:47 | NUR ---
AIDA HARE IN REGARDS TO PATIENT REQUEST
--- NOTE | 2019-03-22 23:57 | NUR ---
SPOKE WITH OVERCOILER IN REGARDS TO PULLING B&O SUPP
--- NOTE | 2019-03-23 | NUR ---
EXPLAINED TO THE PATIENT AND GUEST THAT I HAD SPOKEN WITH THE ENGINE MECHANIC IN REGARDS TO PULLING MED AND THAT SHE WAS ON ANOTHER FLOOR, HOWEVER, SOON SHE BRINGS MED I WILL ADMINISTER
[2019-03-23 00:22] VITALS: BP 131/68
--- NOTE | 2019-03-23 01:18 | NUR ---
PATIENT RESTING IN BED WITH EYES CLOSED AND NO S/S OF DISTRESS. GUEST ALSO RESTING IN BED WITH EYES CLOSED. WILL CONTINUE TO MONITOR.
--- NOTE | 2019-03-23 02:16 | NUR ---
PATIENT RESTING IN BED WITH EYES CLOSED AND NO S/S OF DISTRESS. PATIENT O2 92% ON 9L HIGH FLOW
--- NOTE | 2019-03-23 04:06 | NUR ---
PATIENT RESTING IN BED VISITING WITH FAMILY AT BEDSIDE. ASKED PATIENT IF BLADDER SPASMS ARE BETTER, SHE REPLIED "NEXT TO NONE". BROUGHT PATIENT FRESH WATER AND SNACK PER HER REQUEST. PATIENT DENIES OTHER NEEDS AT THIS TIME. PATIENT'S O2 96%. ENCOURAGED THE PATIENT TO CALL IF SHE HAS NEEDS. WILL CONTINUE MONITOR.
[2019-03-23 04:45] VITALS: BP 110/69
--- NOTE | 2019-03-23 04:57 | NUR ---
PATIENT STATED SHE HAD A BLADDER SPASM. SMALL AMOUNT OF URINE NOTED ON PATIENT'S PAD. CHANGED PAD AND CLEANED PATIENT UP.
--- NOTE | 2019-03-23 05:35 | NUR ---
SPOKE WITH DEANDRE, FAMILY MEMBER WITH [employer]. PROVIDED DEANDRE WITH UPDATE ON PATIENT PER HER REQUEST.
[2019-03-23 05:36] LABS: BASOPHILS 0.6 % (0-2); EOSINOPHILS 0.3 % (0-7); HEMATOCRIT 37.5 % (36.0-48.0); IMMATURE GRANULOCYTES 0.6 % (0-5); LYMPHOCYTES 27.3 % (15-50); MCH 28.9 pg (26.0-34.0); MCV 90.4 fL (80.0-100.0); MEAN PLATELET VOLUME 10.2 fL (7.4-10.4); MONOCYTES 13.3 % (2-11); NEUTROPHILS 57.9 % (40-80); PLATELET COUNT 262 10x3/uL (130-400); RBC 4.15 10x6/uL (4.00-5.40); RDW 13.9 % (11.5-14.5); WBC 7.2 10x3/uL (4.8-10.8)
--- NOTE | 2019-03-23 05:48 | NUR ---
OG SOUZA AT BEDSIDE CHANGING PAD
[2019-03-23 05:49] LABS: ALBUMIN 2.2 g/dL (3.4-5.0); ALKALINE PHOSPHATASE 49 U/L (46-116); ALT (SGPT) 29 U/L (10-68); BILIRUBIN - TOTAL 0.32 mg/dL (0.2-1.3); CALC OSMOLALITY 283 mosm/kg (275-300); CALCIUM 8.1 mg/dL (8.5-10.1); CARBON DIOXIDE 34.1 mmol/L (21.0-32.0); CHLORIDE - SERUM 101 mmol/L (98-107); CREATININE - SERUM 0.6 mg/dL (0.6-1.3); GLUCOSE 168 mg/dL (74-106); POTASSIUM - SERUM 3.1 mmol/L (3.5-5.1); PROTEIN - SERUM 5.6 g/dL (6.4-8.2); SODIUM 142 mmol/L (136-145); UREA NITROGEN 4 mg/dL (7-18); eGFR NON AFRICAN AMERICAN > 90 mL/min (90-120)
--- NOTE | 2019-03-23 07:30 | NUR ---
REPORT RECIEVED ASSUMED CARE. PATIENT IN BED STATED CONTRERAS LEAKING. CHANGED PATIENT PAD AND CLEANED UP. FAMILY AT BEDSIDE. ANSWERED QUESTIONS. PATIENT IN BED WITH EYES CLOSED RESTING QUIETLY.
--- NOTE | 2019-03-23 09:15 | NUR ---
SPOKE WITH AURELIO COLINDRES ABOUT FAMILY WANTING TO SPEAK WITH HER ABOUT PATIENT. STATED SHE WOULD BE IN THERE SOON. OK TO REMOVE PATIENTS CONTRERAS PER PATIENT REQUEST.
[2019-03-23 09:19] VITALS: BP 106/70
--- NOTE | 2019-03-23 09:20 | NUR ---
PATIENT CONTRERAS REMOVED PER AURELIO.
--- NOTE | 2019-03-23 10:30 | NUR ---
PATIENT UP TO SHOWER. VOIDED WITH NO PROBLEMS. IV INTACT. CALL LIGHT WITHIN REACH.
[2019-03-23 13:53] VITALS: BP 115/78
--- NOTE | 2019-03-23 14:35 | NUR ---
PATIENT IN BED WITH EYES CLOSED RESTING QUIETLY. CALL LIGHT WITHIN REACH.
[2019-03-23 18:05] VITALS: BP 96/63
[2019-03-23 20:52] VITALS: BP 96/54
[2019-03-24 00:30] VITALS: BP 113/68
--- NOTE | 2019-03-24 01:31 | NUR ---
ALERT AND ORENTED ABLE TO VOICE NEEDS AND WANTS TO STAFF. 6.5 LETRES O2 VIA HIGH FLOW N/C. IV IS LEVT MIDLINE WITH DRESSING CDI. REMAINS ON CONTIUES PULS OX. WATER AND CALL LIGHT IN REACH.
[2019-03-24 05:01] LABS: BASOPHILS 0.5 % (0-2); EOSINOPHILS 1.7 % (0-7); HEMATOCRIT 36.9 % (36.0-48.0); HEMOGLOBIN 11.8 g/dL (12-16); IMMATURE GRANULOCYTES 0.9 % (0-5); LYMPHOCYTES 32.6 % (15-50); MCH 29.2 pg (26.0-34.0); MCV 91.3 fL (80.0-100.0); MONOCYTES 10.9 % (2-11); NEUTROPHILS 53.4 % (40-80); PLATELET COUNT 286 10x3/uL (130-400); RBC 4.04 10x6/uL (4.00-5.40); WBC 8.2 10x3/uL (4.8-10.8)
[2019-03-24 05:16] LABS: ALBUMIN 2.1 g/dL (3.4-5.0); ALKALINE PHOSPHATASE 65 U/L (46-116); ALT (SGPT) 23 U/L (10-68); BILIRUBIN - TOTAL 0.23 mg/dL (0.2-1.3); CALCIUM 8.4 mg/dL (8.5-10.1); CARBON DIOXIDE 33.1 mmol/L (21.0-32.0); CHLORIDE - SERUM 104 mmol/L (98-107); CREATININE - SERUM 0.7 mg/dL (0.6-1.3); GLUCOSE 130 mg/dL (74-106); POTASSIUM - SERUM 3.6 mmol/L (3.5-5.1); PROTEIN - SERUM 6.2 g/dL (6.4-8.2); SODIUM 143 mmol/L (136-145); eGFR NON AFRICAN AMERICAN > 90 mL/min (90-120)
[2019-03-24 05:30] VITALS: BP 107/60
[2019-03-24 05:35] LABS: CALC OSMOLALITY 284 mosm/kg (275-300); UREA NITROGEN 7 mg/dL (7-18)
--- NOTE | 2019-03-24 08:00 | NUR ---
ASSESSMENT PER FLOW SHEET. PT IS WITHOUT DISTRESS.FAMILY AT BEDSIDE.MONITOR FOR NEEDS.
[2019-03-24 08:08] VITALS: BP 96/63
--- NOTE | 2019-03-24 10:30 | NUR ---
ANXIOUS RE.. CT. MEDS ORDERED PER MAY.
[2019-03-24 12:18] VITALS: BP 107/50
[2019-03-24 17:47] LABS: APPEARANCE CLEAR (CLEAR); BILIRUBIN NEGATIVE (NEGATIVE); COLOR YELLOW (YELLOW); GLUCOSE NEGATIVE (NEGATIVE); KETONE NEGATIVE (NEGATIVE); NITRITE NEGATIVE (NEGATIVE); PROTEIN NEGATIVE (NEGATIVE); UROBILINOGEN NORMAL (NORMAL)
--- NOTE | 2019-03-24 19:29 | NUR ---
REMAINS WITHOUT NEEDS,WITHOUT CHANGE.CONT PLAN OF CARE
[2019-03-24 20:58] VITALS: BP 107/61
[2019-03-25] VITALS: BP 142/88
--- NOTE | 2019-03-25 02:10 | NUR ---
PT RESTING IN BED. EYES CLOSED. NO SIGNS OF DISTRESS. BREATHING EVEN AND UNLABORED. IV SITE LT UPPER ARM MIDLINE. DRESSING CLEAN DRY AND INTACT. NO SIGNS OF INFECTION. LUNG SOUNDS DIMINISHED AND WHEEZING THROUGHOUT. SKIN CLEAN DRY AND INTACT. 4LO2 HIGH FLOW. WILL CONTINUE PLAN OF CARE. CALL LIGHT IN REACH. BED LOWERED AND LOCKED. BED RAILS UPX2. FAMILY AT BEDSIDE.
--- NOTE | 2019-03-25 03:00 | NUR ---
I have reviewed this patient and I concur with the Shift Assessment completed by the Licensed Practical Nurse today this shift.
[2019-03-25 06:19] LABS: BASOPHILS 0.2 % (0-2); EOSINOPHILS 1.6 % (0-7); HEMATOCRIT 37.1 % (36.0-48.0); HEMOGLOBIN 12.5 g/dL (12-16); IMMATURE GRANULOCYTES 0.7 % (0-5); LYMPHOCYTES 31.8 % (15-50); MCH 30.6 pg (26.0-34.0); MCHC 33.7 g/dL (31.0-37.0); MCV 90.9 fL (80.0-100.0); MEAN PLATELET VOLUME 10.2 fL (7.4-10.4); MONOCYTES 9.1 % (2-11); NEUTROPHILS 56.6 % (40-80); PLATELET COUNT 307 10x3/uL (130-400); RBC 4.08 10x6/uL (4.00-5.40); RDW 14.1 % (11.5-14.5); WBC 9.2 10x3/uL (4.8-10.8)
[2019-03-25 07:03] LABS: ALBUMIN 2.3 g/dL (3.4-5.0); ALKALINE PHOSPHATASE 61 U/L (46-116); ALT (SGPT) 25 U/L (10-68); BILIRUBIN - TOTAL 0.31 mg/dL (0.2-1.3); CALC OSMOLALITY 282 mosm/kg (275-300); CALCIUM 8.7 mg/dL (8.5-10.1); CARBON DIOXIDE 32.6 mmol/L (21.0-32.0); CHLORIDE - SERUM 102 mmol/L (98-107); CREATININE - SERUM 0.6 mg/dL (0.6-1.3); GLUCOSE 139 mg/dL (74-106); POTASSIUM - SERUM 3.8 mmol/L (3.5-5.1); PROTEIN - SERUM 6.8 g/dL (6.4-8.2); SODIUM 142 mmol/L (136-145); UREA NITROGEN 7 mg/dL (7-18); eGFR NON AFRICAN AMERICAN > 90 mL/min (90-120)
[2019-03-25 10:12] VITALS: BP 100/61
--- NOTE | 2019-03-25 10:18 | NUR ---
NUTRITION F/U PT TOLERATING REG DIET WITH 100% INTAKE RECENT MEALS. WILL CONTINUE TO HONOR FOOD PREFERENCES, MONITOR PO INTAKE. RD FOLLOWING
[2019-03-25 12:47] VITALS: BP 119/79
[2019-03-25 17:31] VITALS: BP 121/68
--- NOTE | 2019-03-25 19:06 | NUR ---
HAS BEEN UP IN ROOM. PT HOPES TO DC IN AM.SHE IS WITHOUT CHANGE.CONT PLAN OF CARE
[2019-03-25 20:00] VITALS: BP 160/93
--- NOTE | 2019-03-25 23:30 | NUR ---
PT HAS BEEN ON ROOM AIR. SINCE 5PM TODAY O2 AT 96%. PT WAS UP WALKING FINE NO DROP IN O2. PT IS NOW SLEEPING O2 AT 88% PLACED OXYGEN BACK ON PT. WILL FALLOW UP.
[2019-03-26] VITALS: BP 120/61
--- NOTE | 2019-03-26 00:26 | NUR ---
PT LT UPPER ARM MIDLINE LEAKING. STOPPED ABX. PT STATED ARM FEELING VERY HEAVY AND SORE. STARTED NEW IV SITE RT HAND 22G. ATTEMPTS X1. RESTARTED IV ABX.
--- NOTE | 2019-03-26 03:20 | NUR ---
PT RESTING IN BED. EYES CLOSED. NO SIGNS OF DISTRESS. BREATHING EVEN AND UNLABORED. IV SITE RT HAND DRESSING CLEAN DRY AND INTACT. NO SIGNS OF INFULTRATION OR INFECTION. LT UPPER ARM MIDLINE. DRESSING CLEAN DRY AND INTACT. LUNG SOUNDS DIMINISHED. BOWEL SOUNDS ACTIVE. NO LOWER LEG SWELLING PRESENT. SKIN CLEAN DRY AND INTACT. WILL CONTINUE PLAN OF CARE. CALL LIGHT IN REACH. BED LOWERED AND LOCKED BED RAILS UPX2. FAMILY AT BEDSIDE.
[2019-03-26 04:00] VITALS: BP 110/57
--- NOTE | 2019-03-26 04:19 | NUR ---
I have reviewed this patient and I concur with the Shift Assessment completed by the Licensed Practical Nurse today this shift.
[2019-03-26 05:25] LABS: BASOPHILS 0.4 % (0-2); EOSINOPHILS 1.7 % (0-7); HEMATOCRIT 36.1 % (36.0-48.0); HEMOGLOBIN 11.5 g/dL (12-16); IMMATURE GRANULOCYTES 0.6 % (0-5); LYMPHOCYTES 27.2 % (15-50); MCHC 31.9 g/dL (31.0-37.0); MCV 90.9 fL (80.0-100.0); MONOCYTES 8.6 % (2-11); NEUTROPHILS 61.5 % (40-80); PLATELET COUNT 322 10x3/uL (130-400); RBC 3.97 10x6/uL (4.00-5.40); RDW 13.9 % (11.5-14.5); WBC 9.8 10x3/uL (4.8-10.8)
[2019-03-26 06:29] LABS: ALBUMIN 2.2 g/dL (3.4-5.0); ALKALINE PHOSPHATASE 81 U/L (46-116); ALT (SGPT) 20 U/L (10-68); BILIRUBIN - TOTAL 0.12 mg/dL (0.2-1.3); CALCIUM 8.6 mg/dL (8.5-10.1); CARBON DIOXIDE 30.8 mmol/L (21.0-32.0); CHLORIDE - SERUM 103 mmol/L (98-107); POTASSIUM - SERUM 4.3 mmol/L (3.5-5.1); PROTEIN - SERUM 6.2 g/dL (6.4-8.2); SODIUM 142 mmol/L (136-145); eGFR NON AFRICAN AMERICAN 80 mL/min (90-120)
[2019-03-26 06:30] LABS: CALC OSMOLALITY 289 mosm/kg (275-300); CREATININE - SERUM 0.8 mg/dL (0.6-1.3); GLUCOSE 240 mg/dL (74-106); UREA NITROGEN 11 mg/dL (7-18)
--- NOTE | 2019-03-26 07:53 | MORECARE ---
CASE MANAGEMENT DISCHARGE SUMMARY PATIENT: HELLEN ADEN TOMA UNIT: [id number] ADM DATE: 03/16/19 AGE: 53 : 69 SEX: F ROOM/BED: D.2214 AUTHOR: RON WILDE PHYSICIAN: REFERRING PHYSICIAN: PORSHA TESFAYE MD DATE OF SERVICE: 03/26/19 Discharge Plan Patient Name: HELLEN ADEN Facility: [facility]:[place] : 1965 Planned Disposition: Home or Self Care Anticipated Discharge Date: Discharge Date: Expected LOS: Initial Reviewer: [email or web address] Initial Review Date: 03/16/2019 Generated: 03/26/19 8:52 am Comments DCP- Discharge Planning Updated by [id number]: Rubi Roman on 03/26/19 6:[address] OXYGEN/NEBULIZER/NEW TUBING FOR CPAP [facility]ED [facility]. I WILL CALL WHEN THEY OPEN. CM WILL CONTINUE TO FOLLOW AND ASSIST WITH DISCHARGE PLANNING/NEEDS. DCP- Discharge Planning Updated by [email or web address]: Shayy Dan on 03/19/19 7:[address] Patient Name: HELLEN ADEN Admission Status: ER Accout number: [id number] Admission Date: 03-16-2019 : 1965 Admission Diagnosis: Attending: PORSHA TESFAYE Current LOS: 3 Anticipated DC Date: Planned Disposition: Home or Self Care Primary Insurance: MEDICAID [place] Discharge Planning Comments: CM met with patient to complete initial dc planning assessment. CM educated patient on the CM role and verbal consent given by patient to complete assessment. Patient lives at home with her disabled 30 year old and she has guardianship of her 4 grandkids that she is raising. At discharge patient plans to return home and feels this is a safe discharge. 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 CM discussed availability of home health, rehab services, and medical equipment. She has a CPAP machine from [facility], but it causes an eye infection. She stated she get a new mask every month but her tubing has not been changed. Will try to get new tubing for her. Patient denied known discharge needs at this time. CM will continue to follow and will assist as needed with dc plans/needs. Senior Sales Administrator: Shayy Sy DCPIA - Discharge Planning Initial Assessment Updated by [email or web address]: Shayy Dan on 03/19/19 8:06 am * Is the patient Alert and Oriented? Yes * How many steps to enter\exit or inside your home? * PCP MARIEL * [facility] [facility] * Preadmission Environment Home with Family * ADLs Independent * Equipment CPAP * List name and contact numbers for known caregivers / representatives who currently or will assist patient after discharge: MOSHE [phone] * Verbal permission to speak to the caregivers and representatives has been obtained from the patient. N/A * Community resources currently utilized None * Additional services required to return to the preadmission environment? No * Can the patient safely return to the preadmission environment? Yes * Has this patient been hospitalized within the prior 30 days at any hospital? No External Providers External Provider: [facility] Next Contact Date: Service Request Date: Service Type: Resolution: Reviewer: Comments: Coverage Notice Reviewer: [id number] - Shayy Dan Notice Issued Date-Time: 03/19/2019 7:50 Notice Type: Patient Choice Letter Notice Delivered To: Patient Relationship to Patient: Clinical Recruiter Name: Delivery Method: HAND - Hand Delivered Ciera Days: Prior Verbal Notification: Recipient Understood Notice: Yes Recipient Signature: Yes Med Rec Note Co-signed by Attending: Coverage Notice Comment: [facility] for cpap Last DP export: 03/19/19 7:11 Patient Name: HELLEN ADEN Page [phone] at 0753 All edits/amendments must be made on the electronic document DICTATION DATE: 03/26/19751 SLP TEACHER: SHAUN 03/26/19 0752 RPT#: [id number] DC DATE: STATUS: ADM IN [facility] [address] [place] [address] END OF REPORT
[2019-03-26 08:49] VITALS: BP 151/91
--- NOTE | 2019-03-26 10:14 | MORECARE ---
CASE MANAGEMENT DISCHARGE SUMMARY PATIENT: HELLEN ADEN TOMA UNIT: [id number] ADM DATE: 03/16/19 AGE: 53 : 69 SEX: F ROOM/BED: D.2214 AUTHOR: RON WILDE PHYSICIAN: REFERRING PHYSICIAN: PORSHA TESFAYE MD DATE OF SERVICE: 03/26/19 Discharge Plan Patient Name: HELLEN ADEN Facility: [facility]:[place] : 1965 Planned Disposition: Home or Self Care Anticipated Discharge Date: Discharge Date: Expected LOS: Initial Reviewer: [email or web address] Initial Review Date: 03/16/2019 Generated: 03/26/19 11:14 am Comments DCP- Discharge Planning Updated by [email or web address]: Rubi Marcuscarmen on 03/26/19 9:[address] [facility] and I spoke with Samaria. She qualifies for home oxygen. Samaria states they will bring oxygen, portable oxygen and nebulizer to the hospital. States she will need to make an appointment to be fitted for a new mask for her CPAP. I informed the patient and she voiced understanding. CM will continue to follow and assist with discharge planning/needs. DCP- Discharge Planning Updated by [email or web address]: Rubi Marcuscarmen on 03/26/19 6:[address] OXYGEN/NEBULIZER/NEW TUBING FOR CPAP [facility] I WILL CALL WHEN THEY OPEN. CM WILL CONTINUE TO FOLLOW AND ASSIST WITH DISCHARGE PLANNING/NEEDS. DCP- Discharge Planning Updated by [email or web address]: Shayy Dan on 03/19/19 7:[address] Patient Name: HELLEN ADEN Admission Status: ER Accout number: [id number] Admission Date: 03-16-2019 : 1965 Admission Diagnosis: Attending: PORSHA TESFAYE Current LOS: 3 Anticipated DC Date: Planned Disposition: Home or Self Care Primary Insurance: MEDICAID [place] Discharge Planning Comments: CM met with patient to complete initial dc planning assessment. CM educated patient on the CM role and verbal consent given by patient to complete assessment. Patient lives at home with her disabled 30 year old and she has guardianship of her 4 grandkids that she is raising. At discharge patient plans to return home and feels this is a safe discharge. 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 CM discussed availability of home health, rehab services, and medical equipment. She has a CPAP machine from [facility], but it causes an eye infection. She stated she get a new mask every month but her tubing has not been changed. Will try to get new tubing for her. Patient denied known discharge needs at this time. CM will continue to follow and will assist as needed with dc plans/needs. Ehs Engineer: Shayy Dan DCPIA - Discharge Planning Initial Assessment Updated by [id number]: Shayy Dan on 03/19/19 8:06 am * Is the patient Alert and Oriented? Yes * How many steps to enter\exit or inside your home? * PCP MARIEL * [facility] [address] * Preadmission Environment Home with Family * ADLs Independent * Equipment CPAP * List name and contact numbers for known caregivers / representatives who currently or will assist patient after discharge: MOSHE [phone] * Verbal permission to speak to the caregivers and representatives has been obtained from the patient. N/A * Community resources currently utilized None * Additional services required to return to the preadmission environment? No * Can the patient safely return to the preadmission environment? Yes * Has this patient been hospitalized within the prior 30 days at any hospital? No Coverage Notice Reviewer: [id number] - Shayy Dan Notice Issued Date-Time: 03/19/2019 7:50 Notice Type: Patient Choice Letter Notice Delivered To: Patient Relationship to Patient: Setter Automatic Spinning Lathe Name: Delivery Method: HAND - Hand Delivered Ciera Days: Prior Verbal Notification: Recipient Understood Notice: Yes Recipient Signature: Yes Med Rec Note Co-signed by Attending: Coverage Notice Comment: [facility] for cpap Last DP export: 03/26/19 6:53 am Patient Name: HELLEN ADEN Page [phone] at 1014 All edits/amendments must be made on the electronic document DICTATION DATE: 03/26/19 1014 SENIOR CHEMICAL PROCESS ENGINEER: SHAUN 03/26/19 1014 RPT#: [id number] DC DATE: STATUS: ADM IN [facility] [address] [place] [address] END OF REPORT
--- NOTE | 2019-03-26 11:03 | NUR ---
MIDLINE REMOVED FROM LEFT UPPER ARM PER PATINET REQUEST. MILD REDNESS NOTED WHERE TRANSPARENT DRESSING WAS INTACT. NO DRAINAGE NOTED.
[2019-03-26 12:49] VITALS: BP 129/79
[2019-03-26] MEDS ORDERED: LASIX20 MG PO (16:23)
[2019-03-26] MEDS ORDERED: LEVAQUIN750 MG PO (16:23)
[2019-03-26] MEDS ORDERED: FLAGYL500 MG PO (16:24)
[2019-03-26] MEDS ORDERED: IPRAT-ALBUT 0.5-3 ML UPD (16:47)
[2019-03-26] MEDS ORDERED: NICODERM C1 PATCH .1 TRANSDERM (16:59)
--- NOTE | 2019-03-26 17:02 | MORECARE ---
CASE MANAGEMENT DISCHARGE SUMMARY PATIENT: HELLEN ADEN TOMA UNIT: [id number] ADM DATE: 03/16/19 AGE: 53 : 69 SEX: F ROOM/BED: D.2214 AUTHOR: ANDRYDOC PHYSICIAN: REFERRING PHYSICIAN: PORSHA TESFAYE MD DATE OF SERVICE: 03/26/19 Discharge Plan Patient Name: HELLEN ADEN Facility: [facility]:[place] : 1965 Planned Disposition: Home or Self Care Anticipated Discharge Date: Discharge Date: Expected LOS: Initial Reviewer: [id number] Initial Review Date: 03/16/2019 Generated: 03/26/19 6:02 pm Comments DCP- Discharge Planning Updated by [id number]: Rubi Jessie on 03/26/19 3:[address] Patient has portable oxygen in the room. She has her home oxygen already set up. States she is to call when she leaves and Jose will come to her home and show her how to use her nebulizer. She has their number. Davide donovan has been called into the pharmacy by the scanning coordinator. Denies other needs at this time. Home today with oxygen/nebulizer. DCP- Discharge Planning Updated by [id number]: Rubi Jessie on 03/26/19 9:[address] [facility] and I spoke with Samaria. She qualifies for home oxygen. Samaria states they will bring oxygen, portable oxygen and nebulizer to the hospital. States she will need to make an appointment to be fitted for a new mask for her CPAP. I informed the patient and she voiced understanding. CM will continue to follow and assist with discharge planning/needs. DCP- Discharge Planning Updated by [id number]: Rubi Roman on 03/26/19 6:[address] OXYGEN/NEBULIZER/NEW TUBING FOR CPAP [facility]. I WILL CALL WHEN THEY OPEN. CM WILL CONTINUE TO FOLLOW AND ASSIST WITH DISCHARGE PLANNING/NEEDS. DCP- Discharge Planning Updated by [email or web address]: Shayy Dan on 03/19/19 7:[address] Patient Name: HELLEN ADEN Admission Status: ER Accout number: [id number] Admission Date: 03-16-2019 : 1965 Admission Diagnosis: Attending: PORSHA TESFAYE Current LOS: 3 Anticipated DC Date: Planned Disposition: Home or Self Care Primary Insurance: MEDICAID [place] Discharge Planning Comments: CM met with patient to complete initial dc planning assessment. CM educated patient on the CM role and verbal consent given by patient to complete assessment. Patient lives at home with her disabled 30 year old and she has guardianship of her 4 grandkids that she is raising. At discharge patient plans to return home and feels this is a safe discharge. One of her family members will be her ups driver home. CM discussed availability of home health, rehab services, and medical equipment. She has a CPAP machine from [facility], but it causes an eye infection. She stated she get a new mask every month but her tubing has not been changed. Will try to get new tubing for her. Patient denied known discharge needs at this time. CM will continue to follow and will assist as needed with dc plans/needs. Stick Feeder: Shayy Dan DCPIA - Discharge Planning Initial Assessment Updated by [id number]: Shayy Dan on 03/19/19 8:06 am * Is the patient Alert and Oriented? Yes * How many steps to enter\exit or inside your home? * PCP MARIEL * [facility] [address] [facility] * Preadmission Environment Home with Family * ADLs Independent * Equipment CPAP * List name and contact numbers for known caregivers / representatives who currently or will assist patient after discharge: MOSHE [phone] * Verbal permission to speak to the caregivers and representatives has been obtained from the patient. N/A * Community resources currently utilized None * Additional services required to return to the preadmission environment? No * Can the patient safely return to the preadmission environment? Yes * Has this patient been hospitalized within the prior 30 days at any hospital? No Coverage Notice Reviewer: [id number] - Shayy Dan Notice Issued Date-Time: 03/19/2019 7:50 Notice Type: Patient Choice Letter Notice Delivered To: Patient Relationship to Patient: Job Recruiter Name: Delivery Method: HAND - Hand Delivered Ciera Days: Prior Verbal Notification: Recipient Understood Notice: Yes Recipient Signature: Yes Med Rec Note Co-signed by Attending: Coverage Notice Comment: [facility] for cpap Last DP export: 03/26/19 9:14 am Patient Name: HELLEN ADEN Page 16497 at 1702 All edits/amendments must be made on the electronic document DICTATION DATE: 03/26/191701 RADIO PERFORMER: SHAUN 03/26/191701 RPT#: [id number] DC DATE: STATUS: ADM IN [facility] [address] [place] [address] END OF REPORT
--- NOTE | 2019-03-26 17:47 | NUR ---
IV REMOVED WITH NO REDNESS OR EDEMA AT SITE. DISCHARGE INSTRUCTIONS GIVEN WITH PATIENT VOICING UNDERSTANDING. PATIENT TAKEN BY WHEELCHAIR TO PRIVATE CAR
--- NOTE | 2019-03-27 09:41 | MORECARE ---
CASE MANAGEMENT DISCHARGE SUMMARY PATIENT: HELLEN ADEN TOMA UNIT: [id number] ADM DATE: 03/16/19 AGE: 53 : 69 SEX: F ROOM/BED: D.2214 AUTHOR: ANDRYDOC PHYSICIAN: REFERRING PHYSICIAN: PORSHA TESFAYE MD DATE OF SERVICE: 03/27/19 Discharge Plan Patient Name: HELLEN ADEN Facility: [facility]:[place] : 1965 Planned Disposition: Home or Self Care Anticipated Discharge Date: Discharge Date: 03/26/2019 Expected LOS: Initial Reviewer: [email or web address] Initial Review Date: 03/16/2019 Generated: 03/27/19 10:40 am Comments DCP- Discharge Planning Updated by [email or web address]: Rubi Roman on 03/26/19 3:[address] Patient has portable oxygen in the room. She has her home oxygen already set up. States she is to call when she leaves and [facility] will come to her home and show her how to use her nebulizer. She has their number. Nbabrittney donovan has been called into the pharmacy by the spiritual care coordinator. Denies other needs at this time. Home today with oxygen/nebulizer. DCP- Discharge Planning Updated by [id number]: Rubi Roman on 03/26/19 9:[address] [email or web address] and I spoke with Samaria. She qualifies for home oxygen. Samaria states they will bring oxygen, portable oxygen and nebulizer to the hospital. States she will need to make an appointment to be fitted for a new mask for her CPAP. I informed the patient and she voiced understanding. CM will continue to follow and assist with discharge planning/needs. DCP- Discharge Planning Updated by [email or web address]: Rubi Roman on 03/26/19 6:[address] OXYGEN/NEBULIZER/NEW TUBING FOR [facility]AP [facility] I WILL CALL WHEN THEY OPEN. CM WILL CONTINUE TO FOLLOW AND ASSIST WITH DISCHARGE PLANNING/NEEDS. DCP- Discharge Planning Updated by [email or web address]: Shayy Dan on 03/19/19 7:[address] Patient Name: HELLEN ADEN Admission Status: ER Accout number: [id number] Admission Date: 03-16-2019 : 1965 Admission Diagnosis: Attending: PORSHA TESFAYE Current LOS: 3 Anticipated DC Date: Planned Disposition: Home or Self Care Primary Insurance: MEDICAID [place] Discharge Planning Comments: CM met with patient to complete initial dc planning assessment. CM educated patient on the CM role and verbal consent given by patient to complete assessment. Patient lives at home with her disabled 30 year old and she has guardianship of her 4 grandkids that she is raising. At discharge patient plans to return home and feels this is a safe discharge. One of her family members will be her set key driver home. CM discussed availability of home health, rehab services, and medical equipment. She has a CPAP machine from [facility], but it causes an eye infection. She stated she get a new mask every month but her tubing has not been changed. Will try to get new tubing for her. Patient denied known discharge needs at this time. CM will continue to follow and will assist as needed with dc plans/needs. Pet Feeder: Shayy Dan DCPIA - Discharge Planning Initial Assessment Updated by [id number]: Shayy Dan on 03/19/19 8:06 am * Is the patient Alert and Oriented? Yes * How many steps to enter\exit or inside your home? * PCP MARIEL [facility] * Preadmission Environment Home with Family * ADLs Independent * Equipment CPAP * List name and contact numbers for known caregivers / representatives who currently or will assist patient after discharge: MOSHE [phone] * Verbal permission to speak to the caregivers and representatives has been obtained from the patient. N/A * Community resources currently utilized None * Additional services required to return to the preadmission environment? No * Can the patient safely return to the preadmission environment? Yes * Has this patient been hospitalized within the prior 30 days at any hospital? No Coverage Notice Reviewer: [id number] - Shayy Dan Notice Issued Date-Time: 03/19/2019 7:50 Notice Type: Patient Choice Letter Notice Delivered To: Patient Relationship to Patient: Linux Unix Engineer Name: Delivery Method: HAND - Hand Delivered Ciera Days: Prior Verbal Notification: Recipient Understood Notice: Yes Recipient Signature: Yes Med Rec Note Co-signed by Attending: Coverage Notice Comment: [facility] for cpap Last DP export: 03/26/19 4:02 pm Patient Name: HELLEN ADEN Page [phone] at 0941 All edits/amendments must be made on the electronic document DICTATION DATE: 03/27/19939 LEARNING SUPPORT AIDE: SHAUN 03/27/19939 RPT#: [id number] DC DATE:03/26/19 STATUS: DIS IN [facility] [address] [place] [address] END OF REPORT
[2019-03-28 03:06] LABS: IMMUNOGLOBULIN E 197 IU/mL (6-495)
--- NOTE | 2019-03-29 11:13 | EC ---
PATIENT:HELLEN ADEN DATE OF SERVICE: 03/16/19 SEX: F MEDICAL RECORD: [id number] DATE OF : [birth year] LOCATION:D.MS Pe[address]221 AGE OF PATIENT: 53 ADMISSION DATE: 03/16/19 REFERRING PHYSICIAN: INTERPRETING PHYSICIAN: OMID MAHONEY MD ECHOCARDIOGRAM REPORT ECHO CHARGES 4 ECHO COMPLETE Date: 03/22/19 CLINICAL DIAGNOSIS: DYSPNEA ECHOCARDIOGRAPHIC MEASUREMENTS (adult normal given) AC root (d.<3.7cm) 3.0 cm LV Septum d (<1.2 cm> 1.3 cm Valve Excursion 1.5 cm LV Septum (systole) 1.4 cm Left Atria (s.<4.0cm> 2.9 cm LVPW d(<1.2cm) 0.7 cm RV (d.<2.3cm) 2.8 cm LVPW (sytole) 0.9 cm LV diastole(<5.6CM) 5.4 cm MV E-F(>70mm/sec) cm LV systole 4.6 cm LVOT Diameter 1.6 cm MV exc.(>10mm) cm Est.ejection fraction (50-75%) % DOPPLER: LVIT cm/sec A 67 cm/sec E 59 cm/sec LA cm/sec RVSP 29.6 mmHg LVOT 125 cm/sec AOP1/2T m/s Asc. Ao 230 cm/sec RVOT 89 cm/sec RA cm/sec PA 75 cm/sec AV Gradient Peak 21.2 mmHg AV Mean 13.5 mmHg AV Area 1.2 cm MV Gradient Peak 3.6 mmHg MV Mean 1.9 mmHg MV Area cm COMMENTS: Psychologist Developmental: Meron [facility] Table Operator: 1 Dr. Mahoney TAPE# PACS Pericardial Effusion N DATE OF SERVICE: ECHOCARDIOGRAM FINDINGS: 1. Left ventricular chamber size is within normal limits. Left ventricular systolic function is normal. Overall ejection fraction estimated at 55% to 60%. 2. Left atrium, right atrium, and right ventricle chamber sizes are within normal limits. 3. Valvular structures: Aortic valve demonstrates mild calcific aortic ECHOCARDIOGRAM REPORT [id number] HELLEN ADEN stenosis, valve area calculates to 1.2 cm squared and has a gradient of 21 mm across the valve. The remaining valvular structures have normal structure and motion. 4. Doppler interrogation elsewise reveals mild mitral regurgitation, no other valvular insufficiency or stenosis. Pulmonary systolic pressure is normal estimated at 30 mmHg. 5. No evidence of pericardial effusion or left ventricular thrombus. TRANSINT:[id number] Voice Confirmation ID: [id number] DOCUMENT ID: [id number] OMID MAHONEY MD at 1113 CC: [id number] DICTATION DATE: 03/23/19 1008 FOREST PATHOLOGY TEACHER: 03/23/19 1242 DIS IN 03/26/19 [place] [id number] [place] [id number]
== END 2019-03-26 17:47 | disposition home or self-care (01) | DRG 871 ==
LOC: D.ER 10:24 → D.MS 13:34 → D.SDCHOLD 03-23 12:25 → D.MS 03-26 17:47
PROVIDERS: Family Medicine; Internal Medicine Pulmonary Disease; Radiology Vascular & Interventional Radiology; Surgery; ADMIT Internal Medicine Nephrology; ATTEND Internal Medicine Nephrology
PROC: 05HC33Z Insertion of Infusion Device into Left Basilic Vein, Percutaneous Approach (ICD-10-PCS; principal; 2019-03-22)
DX: A41.9 Sepsis, unspecified organism (principal); J96.01 Acute respiratory failure with hypoxia; I50.33 Acute on chronic diastolic (congestive) heart failure; J18.9 Pneumonia, unspecified organism; K57.20 Diverticulitis of large intestine with perforation and abscess without bleeding; N39.0 Urinary tract infection, site not specified; J90 Pleural effusion, not elsewhere classified; Z68.43 Body mass index [BMI] 50.0-59.9, adult; G25.81 Restless legs syndrome; J45.909 Unspecified asthma, uncomplicated; G47.33 Obstructive sleep apnea (adult) (pediatric); K21.9 Gastro-esophageal reflux disease without esophagitis; M19.90 Unspecified osteoarthritis, unspecified site; I11.0 Hypertensive heart disease with heart failure; E66.9 Obesity, unspecified; E87.6 Hypokalemia

== ENCOUNTER → 2019-04-08 13:31 | Outpatient (CLI) | payer MEDICAID ==
[2019-03-18 09:45] VITALS: BMI 50.3
[~2019-04-08 13:31] MED LIST changes: +FLAGYL500 MG PO; +IPRAT-ALBUT 0.5-3 ML UPD; +LASIX20 MG PO; +LEVAQUIN750 MG PO; +NICODERM C1 PATCH .1 TRANSDERM
== END | disposition home or self-care (01) ==
LOC: D.CT 13:30
PROVIDERS: ATTEND Surgery
DX: K57.20 Diverticulitis of large intestine with perforation and abscess without bleeding (principal)

== ENCOUNTER 2019-08-03 13:57 | Day surgery (SDC) | payer MEDICAID ==
[2019-08-02 17:06] LABS: HEMATOCRIT 43.7 % (36.0-48.0); HEMOGLOBIN 13.8 g/dL (12-16); MCH 27.9 pg (26.0-34.0); MCHC 31.6 g/dL (31.0-37.0); MCV 88.5 fL (80.0-100.0); MEAN PLATELET VOLUME 9.4 fL (7.4-10.4); RBC 4.94 10x6/uL (4.00-5.40); RDW 13.5 % (11.5-14.5); WBC 10.3 10x3/uL (4.8-10.8)
[~2019-08-03] VITALS: Ht 157.5 cm; Wt 115.7 kg
[~2019-08-03 13:57] MED LIST changes: +AMOX TR-K CLV 21 TAB; +COLACE100 MG PO; +HYDROCODON-ACE1 EA10; +MOBIC7.5 MG PO; +PROBIOTIC1 EAC1
[2019-08-03 14:02] VITALS: BP 132/82; Ht 157.5 cm; Wt 115.7 kg
[2019-08-03] MEDS ORDERED: OXYCODONE HCL5 M1 PO (19:07)
--- NOTE | 2019-08-03 19:30 | NUR ---
PATIENT CARE ASSUMED AT THIS TIME FROM Yanet LONG RN.
[2019-08-03 20:00] VITALS: BP 124/76
--- NOTE | 2019-08-03 20:00 | NUR ---
PT RECIEVED FROM RECOVERY, AOX4. PROVIDED WATER. VSS. DENIES PAIN, STATES ONLY "PRESSURE" TO RIGHT FOOT. PROPPED ON PILLOW. DRESSING CDI. BOOT ON. TOLD PT WE WOULD WEAN OFF 2L O2, SHE NEEDED TO VOID, AND ALL VITALS STABLE PRIOR TO LEAVING. VERBALIZED UNDERSTANDING. CL IN REACH, WILL CTM
--- NOTE | 2019-08-03 20:45 | NUR ---
PT ASSISTED TO BATHROOM. VOIDED. REMOVED IV FROM LEFT FA. VSS ON ROOM AIR. PROVIDED DISCHARGE INSTRUCTIONS AND PAPERWORK SIGNED. PT CALLED FRIEND TO COME PICK HER UP
--- NOTE | 2019-08-03 21:15 | NUR ---
PT TAKEN BY WHEELCHAIR TO ER. FRIEND PICKED PT UP FROM ENTRANCE. ALL BELONGINGS TAKEN WITH PT
--- NOTE | 2019-08-04 08:00 | OP ---
PATIENT NAME: HELLEN VANCE MEDICAL RECORD: [id number] :69 LOCATION:[place] ADMISSION DATE: SURGEON: NACHO AUGUST DO DATE OF OPERATION: 08/03/2019 PROCEDURE PERFORMED: Right great toe proximal phalanx open reduction and pinning. PREOPERATIVE DIAGNOSIS: Right great toe proximal phalanx closed comminuted intraarticular fracture. POSTOPERATIVE DIAGNOSIS: Right great toe proximal phalanx closed comminuted intraarticular fracture. INDICATIONS: Ms. Vance is a 53-year-old female who fell and went to the urgent care, had x-rays showing a severely displaced right great toe proximal phalanx, fracture at the IP joint. She did not tolerate that and then did not want to have it left that way. I informed her of the risk of malunion, nonunion, continued pain, infection, bleeding, damage to nerves and vessels and need for further surgery and she is okay with that and signed the consent. SURGEON: Nacho August DO DESCRIPTION OF PROCEDURE: The patient was taken to the operative suite, laid in supine position, given general anesthetic, LMA was placed. She was given 2 grams Ancef. The right lower extremity was prepped and draped in sterile fashion. A timeout was performed. Everyone was agreeance with correct side, site, the patient, and the procedure. Then, began by trying to close reduce the fracture. It was severely displaced on the lateral and distal pieces had gone plantar to the proximal piece. I decided not to open it. We then had to intubate the patient as she is still moving. When she was intubated, I made a small incision on the medial side of the right great toe, got no reduction, be it not perfect, I got a reduction and put two 0.045 K-wires crossing from distal to proximal into the 2 pieces distally that were into the intra-articular split and then into the proximal part of the proximal phalanx. Once they are in adequate position, we bent the pins and cut them and then I closed the wound with a #2-0 nylon in a horizontal mattress fashion and dressed with Adaptic, 4 x 4s, cast padding, and 6-inch Dwain wrap. She was then placed in postop shoe, awakened and taken to recovery in stable condition. BLOOD LOSS: Minimal. COMPLICATION: None. TRANSINT:[id number] Voice Confirmation ID: [id number] DOCUMENT ID: [id number] NACHO AUGUST DO at 0800 CC: [id number] DICTATION DATE: 08/03/191912 BUYER GRAIN: 08/04/19 0204 [facility] 08/03/19 [facility] [address] [place] [id number]
== END 2019-08-03 21:15 | disposition home or self-care (01) ==
LOC: D.PAN 13:57 → D.OPS 15:00 → D.MS 19:59 → D.PAN 21:15
PROVIDERS: Anesthesiology; ATTEND Orthopaedic Surgery
DX: S92.411A Displaced fracture of proximal phalanx of right great toe, initial encounter for closed fracture (principal); W19.XXXA Unspecified fall, initial encounter; I11.0 Hypertensive heart disease with heart failure; I50.9 Heart failure, unspecified; E11.9 Type 2 diabetes mellitus without complications; Z72.0 Tobacco use; J45.909 Unspecified asthma, uncomplicated; M79.671 Pain in right foot; M25.561 Pain in right knee